=== PATIENT | female | born 1990 | race African-American/Black ===

== ENCOUNTER 2020-02-01 15:54 | Emergency (ER) | payer OTHER, SELFPAY ==
--- NOTE | 2020-02-01 16:10 | ED.GENADULT ---
HPI - General Adult General Chief complaint: Urogenital-Female Stated complaint: possible uti Time Seen by Provider: 02/01/20 16:25 Source: patient Mode of arrival: ambulatory Limitations: no limitations History of Present Illness HPI narrative: 29-year-old female patient presents to the [facility] with complaints of urinary symptoms that started 2 days ago. Patient states she has had urgency, frequency and burning pain with urination. Denies any low back pain but states she does have a little bit of lower abdominal cramping. Denies any fevers, body aches or chills. Denies any nausea, vomiting or diarrhea. Patient states she did take AZO today and went to her primary doctor. Patient states that she was told that when they dipped it because she took AZO and skewed the results and so they were not going to give her an antibiotic today but did send her home with something for pain. They did refer patient to the [facility] for further evaluation of her UTI. Related Data Home Medications Medication Instructions Recorded Confirmed Aubagio 02/01/20 gabapentin 300 mg PO TID 02/01/20 02/01/20 hydroxyzine HCl 50 mg PO BID 02/01/20 02/01/20 oxycodone-acetaminophen [Percocet] 1 tablet PO Q6H 02/01/20 02/01/20 Allergies Allergy/AdvReac Type Severity Reaction Status Date / Time amoxicillin Allergy Mild Rash Verified 02/01/20 16:23 Sulfa (Sulfonamide Allergy Mild Hives Verified 02/01/20 16:22 Antibiotics) coconut AdvReac Mild Itching Verified 02/01/20 16:23 Review of Systems Review of Systems: Narrative: CONSTITUTIONAL: Denies fever, chills, or sweats. EYES: Denies visual changes, redness, or discharge. ENT: Denies rhinorrhea, congestion, sore throat, or otalgia. CARDIOVASCULAR: Denies chest pain, palpitations, or edema. RESPIRATORY: Denies cough or dyspnea. GASTROINTESTINAL: Denies abdominal pain, nausea, vomiting, or diarrhea. GENITOURINARY: Denies dysuria or hematuria. Positive pain with urination urgency and frequency x2 days SKIN: Denies rash or itching. MUSCULOSKELETAL: Denies back pain, joint pain, or myalgia. NEUROLOGIC: Denies headache, numbness, or weakness. PSYCHIATRIC: Denies anxiety or depression. [facility] Social History Social History Gender identity (if verbalized by the patient): Female Comments At the time of my signature I agree with nursing past medical history, surgical, social, and family history. There is no relevant family history pertinent to the presenting complaint. Exam Narrative: Exam Narrative: GENERAL: Well-appearing, well-nourished, and in no acute distress. HEAD: Normocephalic, atraumatic. EYES: PERRLA and EOMI. ENT: Nares clear, no rhinorrhea or epistaxis. Mucous membranes moist. NECK: Supple. No lymphadenopathy CHEST: Clear to auscultation. No respiratory distress. HEART: Regular rate and rhythm. No murmur heard. Normal peripheral pulses. ABDOMEN: Soft, slightly tender on palpation to the suprapubic area, nondistended, normal active bowel sounds. No CVA tenderness on percussion. EXTREMITIES: Normal range of motion. No edema. SKIN: Warm, dry, no rash. NEURO: No focal deficits. Alert and oriented x3. Course Vital Signs Vital signs: Vital Signs Temperature 36.8 C 02/01/20 16:15 Pulse Rate 117 H 02/01/20 16:15 Respiratory Rate 17 02/01/20 16:15 Blood Pressure 130/80 02/01/20 16:15 Pulse Oximetry 99 02/01/20 16:15 Temperature 36.8 C 02/01/20 16:15 Pulse Rate 117 H 02/01/20 16:15 Respiratory Rate 17 02/01/20 16:15 Blood Pressure 130/80 02/01/20 16:15 Pulse Oximetry 99 02/01/20 16:15 Vital signs reviewed. Medical Decision Making Differential Diagnosis Differential Diagnosis: Differential diagnosis: Uncomplicated lower UTI, uncomplicated UTI, pyelonephritis Discussed with patient that our urine dip results were skewed due to the fact that she did take AZO today. Discussed with her that sin
[2020-02-01 16:15] VITALS: BP 130/80; PULSE 117; RESP 17; TEMP 36.8; O2SAT 99
== END 2020-02-01 16:45 | disposition home or self-care (01) ==
PROVIDERS: Emergency Provider Nurse Practitioner Family; PCP Family Medicine
DX: N30.01 Acute cystitis with hematuria (principal); G35 Multiple sclerosis
CPT/HCPCS: 81003; 81025; 87077; 87086; 87088; 87186; 99213; G0463

== ENCOUNTER 2020-08-02 10:32 | Emergency (ER) | payer OTHER, SELFPAY ==
[2020-08-02 10:35] VITALS: BP 132/103; PULSE 99; RESP 16; TEMP 36.3; O2SAT 100
--- NOTE | 2020-08-02 11:20 | ED.GENADULT ---
HPI - General Adult General Chief complaint: Unspecified Stated complaint: ms flare Time Seen by Provider: 08/02/20 11:20 Source: patient and family Mode of arrival: ambulatory Limitations: no limitations History of Present Illness HPI narrative: Patient is a 30-year-old female with a history of multiple sclerosis followed with Dr. Quiroz, who presents for evaluation of breakthrough pain. Patient states that she takes Percocet for breakthrough pain due to her multiple sclerosis. She states when she is experiencing a flare she often has whole body pain and spasm. She currently is having spasm in her lower back. She denies fall or injury. She denies headache, chest pain, shortness of breath. No fever or chills. No cough or shortness of breath. No vision changes. She denies any numbness or tingling. Patient has been ambulatory. Patient states she has been working with Dr. Quiroz's office who is supposed to refill her prescription for her but when they called this morning they had forgotten to send the prescription to him. She stated that he would be in the office this afternoon and will fill her routine prescription. Related Data Home Medications Medication Instructions Recorded Confirmed Aubagio 02/01/20 gabapentin 300 mg PO TID 02/01/20 02/01/20 hydroxyzine HCl 50 mg PO BID 02/01/20 02/01/20 oxycodone-acetaminophen [Percocet] 1 tablet PO Q6H 02/01/20 02/01/20 Allergies Allergy/AdvReac Type Severity Reaction Status Date / Time amoxicillin Allergy Mild Rash Verified 02/01/20 16:23 Sulfa (Sulfonamide Allergy Mild Hives Verified 02/01/20 16:22 Antibiotics) coconut AdvReac Mild Itching Verified 02/01/20 16:23 Review of Systems Review of Systems: Narrative: CONSTITUTIONAL: Denies fever, chills, or sweats. EYES: Denies visual changes, redness, or discharge. ENT: Denies rhinorrhea, congestion, sore throat, or otalgia. CARDIOVASCULAR: Denies chest pain, palpitations, or edema. RESPIRATORY: Denies cough or dyspnea. GASTROINTESTINAL: Denies abdominal pain, nausea, vomiting, or diarrhea. GENITOURINARY: Denies dysuria or hematuria. SKIN: Denies rash or itching. MUSCULOSKELETAL: Denies back pain, joint pain, reports myalgias PMFSH Past Medical History Medical History (Updated 08/02/20 @ 11:34 by Hortencia Alvarez MD) Breakthrough pain Multiple sclerosis Social History Social History (Updated 08/02/20 @ 11:34 by Hortencia Alvarez MD) Smoking status: Never smoker Substance use: never Gender identity (if verbalized by the patient): Female Exam Narrative: Exam Narrative: GENERAL: Awake, alert, conversant HEAD: Normocephalic, atraumatic. EYES: PERRLA and EOMI. ENT: Nares clear, no rhinorrhea or epistaxis. Mucous membranes moist. NECK: Supple. CHEST: No respiratory distress, breathing even and non labored HEART: Regular rate, sinus rhythm ABDOMEN:Non distended, non tender EXTREMITIES: Normal range of motion. No edema. No bruising. SKIN: Warm, dry, no rash. NEURO:No focal deficits. Alert and oriented x3 Course Vital Signs Vital signs: Vital Signs Temperature 36.3 C L 08/02/20 10:35 Pulse Rate 99 08/02/20 10:35 Respiratory Rate 16 08/02/20 10:35 Blood Pressure 132/103 H 08/02/20 10:35 Pulse Oximetry 100 08/02/20 10:35 Temperature 36.3 C L 08/02/20 10:35 Pulse Rate 99 08/02/20 10:35 Respiratory Rate 16 08/02/20 10:35 Blood Pressure 132/103 H 08/02/20 10:35 Pulse Oximetry 100 08/02/20 10:35 Medical Decision Making MDM Narrative Medical decision making narrative: Patient presented for evaluation of all of her muscle type pain. At the time of assessment, ABCs are intact and vital signs are stable. Physical exam is reassuring. Given that this is breakthrough pain due to chronic pain, without known injury or other medical complaint, I do not see any utility in obtaining any imaging or laboratory studies. She does not have any new neuro deficits or visual changes to p
[2020-08-02] MEDS: oxyCODONE/ACETAMINOPHEN (*CRX) 5-325 MG TABLET 2 TABLET PO (11:46)
== END 2020-08-02 11:53 | disposition home or self-care (01) ==
PROVIDERS: Emergency Provider Emergency Medicine; PCP Family Medicine
DX: R52 Pain, unspecified (principal); G35 Multiple sclerosis
CPT/HCPCS: 99283; A9270

== ENCOUNTER 2020-12-07 10:44 | Emergency (ER) | payer OTHER, SELFPAY ==
--- NOTE | ~2020-12-07 | XR_ITS ---
EXAMINATION: XR chest 2V DATE: 12/07/2020 11:54 INDICATION: Shortness of breath. Midsternal chest pain. TECHNIQUE: Frontal and lateral views of the chest were obtained. COMPARISON: None. FINDINGS: The chest demonstrates clear lungs without pneumonia, pleural effusion, or pneumothorax. Th e heart size is normal. IMPRESSION: 1. No acute cardiopulmonary disease. Reviewed, dictated and finalized at location A.
[2020-12-07 10:55] VITALS: BP 142/95; PULSE 100; RESP 20; TEMP 36.3; O2SAT 100
--- NOTE | 2020-12-07 11:14 | ECG_ITS ---
Measurements Intervals [place] Rate: 105 P: 64 OK: 149 QRS: 66 QRSD: 72 T: 49 QT: 344 QTc: 456 Interpretive Statements SINUS TACHYCARDIA POSSIBLE LEFT ATRIAL ENLARGEMENT BASELINE WANDER- V3-V6 ABNORMAL ECG Electronically Signed On 12-07-2020 11:17:00 CDT by Joo Reeder D.O.
[2020-12-07 11:55] LABS: Basophils Percent Auto 0.3 % (0.2-1.2); Eosinophils Absolute Auto 0.1 K/mm3 (0-0.3); Eosinophils Percent Auto 1.7 % (0-4.4); Hematocrit 37.6 % (37.0-47.0); Hemoglobin 12.2 g/dL (12.0-15.0); Immature Platelet Fraction Pct 2.3 % (0.9-11.2); Lymphocytes Absolute Auto 2.07 K/mm3 (0.9-3.2); Mean Corpuscular HGB Conc 32.4 g/dl (32-36); Mean Corpuscular Hemoglobin 27.6 pg (26-34); Mean Corpuscular Volume 85.1 fl (80-100); Mean Platelet Volume 9.7 fl (7.4-10.4); Monocytes Absolute Auto 0.2 K/mm3 (0.1-0.6); Monocytes Percent Auto 7.3 % (2.6-8.5); Neutrophils Absolute Auto 0.7 K/mm3 (1.3-6.7); Neutrophils Percent Auto 21.7 % (45.5-73.1); Platelet Count Result 265 k/mm3 (150-375); Red Blood Count 4.42 M/mm3 (4.2-5.4); Red Cell Distribution Width 12.9 % (11.5-14.5)
[2020-12-07 12:01] LABS: Anisocytosis 1+ (NORMAL); Platelet Estimate Adequate (Adequate); Poikilocytosis 1+ (NORMAL)
[2020-12-07 12:02] LABS: Ovalocytes 1+ (NORMAL); Prothrombin Time 13.2 Seconds (11.1-14.7)
[2020-12-07 12:03] LABS: Partial Thromboplastin Time 20.8 SECONDS (22.3-36.8)
[2020-12-07 12:06] LABS: Anion Gap 9 mmol/L (8-16); Blood Urea Nitrogen 11 mg/dL (7-17); Calcium 9.3 mg/dL (8.4-10.2); Carbon Dioxide 23 mmol/L (22-30); Chloride 110 mmol/L (98-107); Estimated CRCL calculation 100 ml/min; Estimated Glomerular Filt Rate > 60; Glucose 71 mg/dL (65-110); Sodium 142 mmol/L (137-145)
[2020-12-07 12:18] LABS: Troponin I < 0.012 ng/mL (0.000-0.034)
--- NOTE | 2020-12-07 12:39 | ED.SOB ---
HPI - SOB/Dyspnea History of Present Illness HPI Narrative: 30 yo female w/ h/o MS presents to the ED c/o MS flare. She reports that she was outside in the heat today when she began to have symptoms typical of her past MS flares. She noted blurry vision, fatigue, SOB, and anterior chest pain. Since arriving here and sitting in the cool air she is feeling better. She sees Dr. Quiroz. Related Data Allergies Allergy/AdvReac Type Severity Reaction Status Date / Time amoxicillin Allergy Mild Rash Verified 09/13/20 13:50 Sulfa (Sulfonamide Allergy Mild Hives Verified 09/13/20 13:50 Antibiotics) coconut AdvReac Mild Itching Verified 09/13/20 13:50 Review of Systems Review of Systems: All systems reviewed & are unremarkable except as noted in HPI and below Constitutional: Constitutional: Denies fever(s) ENT: Denies dizziness Gastrointestinal: Gastrointestinal: Denies abdominal pain and Denies nausea Genitourinary: Genitourinary: Reports no additional female genitourinary complaints Musculoskeletal: Musculoskeletal: Denies back pain Neurologic: Denies focal weakness and Reports weakness PMFSH Past Medical History Medical History Breakthrough pain Multiple sclerosis Social History Social History Smoking status: Never smoker Substance use: never Gender identity (if verbalized by the patient): Female Exam Const: General: healthy appearing, no acute distress and alert Orientation/consciousness: patient oriented x3 HENMT: Head: normal to inspection Neck: Neck: normal visual inspection and no lymphadenopathy Chest: Chest palpation & inspection: no tenderness Resp: Effort & Inspection: normal respiratory effort Auscultation: clear to auscultation bilaterally, no rales, no rhonchi and no wheezes Cardio: Jugular venous distension: no JVD Rate: regular rate Rhythm: regular rhythm Heart sounds: no murmurs GI: Inspection: non-distended GI Palp: Yes Soft to palpation and No Tenderness to palpation present (GI) Skin: General skin exam: normal color Neuro: General: patient oriented x3 and moves all extremities Speech: normal speech Extrem: General: no edema Psych: Appearance: well kempt Affect: normal affect Course Vital Signs Vital signs: Vital Signs Temperature 36.3 C L 08/11/21 10:55 Pulse Rate 100 12/07/20 10:55 Respiratory Rate 20 12/07/20 10:55 Blood Pressure 142/95 H 12/07/20 10:55 Pulse Oximetry 100 12/07/20 10:55 Temperature 36.3 C L 12/07/20 10:55 Pulse Rate 98 12/07/20 13:06 Respiratory Rate 12 12/07/20 13:06 Blood Pressure 124/90 12/07/20 13:06 Pulse Oximetry 100 12/07/20 13:06 MDM - SOB/Dyspnea MDM Narrative Medical decision making narrative: Symptoms resolved. Dr. Quiroz recommends that she go home and rest. Lab Data Result diagrams: 12/07/20 11:47 12/07/20 11:47 Labs: Lab Results 12/07/20 12/07/20 12/07/20 Range/Units 11:47 11:47 11:47 WBC 3.0 L (4.5-10.0) K/mm3 RBC 4.42 (4.2-5.4) M/mm3 Hgb 12.2 (12.0-15.0) g/dL Hct 37.6 (37.0-47.0) % MCV 85.1 (80-100) fl MCH 27.6 (26-34) pg MCHC 32.4 (32-36) g/dl RDW 12.9 (11.5-14.5) % Plt Count 265 (150-375) k/mm3 MPV 9.7 (7.4-10.4) fl Immature Gran % (Auto) 0.0 (0-0.5) % Neut % (Auto) 21.7 L (45.5-73.1) % Lymph % (Auto) 69.0 H (18.3-44.2) % Vance % (Auto) 7.3 (2.6-8.5) % Eos % (Auto) 1.7 (0-4.4) % Baso % (Auto) 0.3 (0.2-1.2) % Lymph # (Auto) 2.07 (0.9-3.2) K/mm3 Vance # (Auto) 0.2 (0.1-0.6) K/mm3 Eos # (Auto) 0.1 (0-0.3) K/mm3 Baso # (Auto) 0.0 (0.0-0.1) K/mm3 Abs Immat Gran (auto) 0.00 (0.00-0.031) K/mm3 Absolute Neuts (auto) 0.7 L (1.3-6.7) K/mm3 Absolute Nucleated RBC 0.0 (0.0-0.012) K/mm3 Nucleated RBC % 0.0 (0.0-0.2) % Platelet
[2020-12-07 13:06] VITALS: BP 124/90; PULSE 98; RESP 12; O2SAT 100
== END 2020-12-07 13:16 | disposition home or self-care (01) ==
LOC: ANHED 13:08
PROVIDERS: Emergency Provider Emergency Medicine
DX: G35 Multiple sclerosis (principal); R00.0 Tachycardia, unspecified; R94.31 Abnormal electrocardiogram [ECG] [EKG]
CPT/HCPCS: 36415; 71046; 80048; 84484; 85025; 85055; 85610; 85730; 93005; 99284